=== PATIENT | male | born 2005 | race Caucasian/White ===

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

== ENCOUNTER 2024-04-17 03:03 | Emergency (ER) | payer OTHER, SELFPAY ==
--- NOTE | ~2024-04-17 | CT_ITS ---
CLINICAL HISTORY: New onset headache - pt states pain for 1 month, went away for 2 days,back CT head without contrast Comparison: None Findings: There is no acute intracranial hemorrhage. Ventricles are of normal size and shape. No mass effect or midline shift is present. The price-white matter differentiation appears normal. There is fluid and mucosal thickening in the paranasal sinuses greatest within the left frontal sinus and bilateral sphenoid sinuses. Inferior portions of the maxillary sinuses are not in the field of view. The mastoids are clear. Orbits are unremarkable. No fractures are identified. IMPRESSION: 1. No intracranial abnormality. 2. Fluid and mucosal thickening in the paranasal sinuses suggestive of sinusitis. This document has been electronically signed by: Nestor Ortega MD on 04/17/2024 04:13:43
[2024-04-17 03:10] VITALS: BP 172/85; PULSE 131; RESP 18; TEMP 36.6; O2SAT 100; BMI 18.1
[2024-04-17 03:24] VITALS: BP 144/81; PULSE 117; RESP 18; TEMP 36.7; O2SAT 99
--- NOTE | 2024-04-17 03:24 | PC.NURSE ---
pt brought back to ED room 14. MD Miranda and primary RN Jesica made aware of symptoms
--- NOTE | 2024-04-17 03:28 | ED.NEUROSD ---
HPI - Neuro Symptoms/Deficit General Chief Complaint: Neuro Symptoms/Deficit Stated Complaint: headaches/left side numb Time Seen by Provider: 04/17/24 03:28 Source: patient Mode of arrival: ambulatory Limitations: no limitations History of Present Illness ED Provider: HPI Narrative: Patient's history of anxiety in the past been having headache since 03/29 have almost every day till 2 days ago localized to the left side today patient did not have any headache at 02:00 while sitting on the computer started noticing vague feeling of the left side without any headache feel that his left side is now after that patient has became panic at this time patient does have subjective numbness but no objective findings no focal deficit no headache as such per patient Related Data Previous Rx's ?Medication ?Instructions ?Recorded [id number]-[id number] 1 tab PO Q6H PRN haeadace #20 tabs 04/17/24 50 mg-325 mg-40 mg tablet Allergies Allergy/AdvReac Type Severity Reaction Status Date / Time No Known Allergies Allergy Verified 04/17/24 03:12 [No Known Allergies*] Review of Systems Review of Systems: Yes all other systems are reviewed and are negative [facility] Past Medical History Medical History ADD (attention deficit disorder) Social History Social History Smoked in Last 30 Days: No Substance Use Type: Marijuana Advance Directives: No Advance Directives Information Provided: Yes Do you have a plan to hurt others: No Plan Physical Exam Vital Signs: Vital Signs: Last Vital Signs Temp 98.1 F 04/17/24 03:24 Pulse 117 H 04/17/24 03:24 Resp 18 04/17/24 03:24 BP 144/81 H 04/17/24 03:24 Pulse Ox 99 04/17/24 03:24 O2 Del Method Room Air 04/17/24 03:24 BMI result Body Mass Index 18.1 Appearance: Alert. Oriented X3. No acute distress. Eyes: PERRLA, No Nystagmus ENT: Pharynx normal. Oral Mucosa moist Neck: Normal inspection. Neck supple. Temporal artery normal nontender CVS: Normal heart rate and rhythm. Pulses normal. Respiratory: No respiratory distress. Equal air entry bilateral, no wheezing/rales/rhonchi Abdomen: Soft and nontender. Bowel sounds are present, no mass palpable, no CVA tenderness Skin: Skin warm and dry. Normal skin color. Normal skin turgor. Extremities: No lower extremity edema. No calf tenderness Neuro: Oriented X 3. No motor deficit. No sensory deficit.No cerebellar signs , cranial nerves II-XII intact deep tendon reflexes equal Medical Decision Making Medical Decision Making MDM Narrative: Patient with migraine equivalent syndrome with numbness feeling of the left side with headaches CT scan of the head is negative will discharge patient on Fioricet advised to follow with PCP Differential Diagnosis Differential Diagnoses: The differential diagnosis associated with the presentation includes CVA/brain tumor/migraine Independent Interpretation I performed an independent interpretation of an: CT Scan Radiology Impression Discussion of test interpretation with radiology: I have reviewed the radiologist's reading. Radiologist Impression: NAD Discharge Plan Discharge Clinical Impression: Migraine equivalent syndrome Patient Disposition: Home, Self-Care Instructions: Migraine Headache (ED) Additional Instructions: Your symptoms likely from migraine headache Take medication as prescribed and follow with PCP Prescriptions: New [id number]-uwhzqzizhvogg-gpwt 50-325-40 mg tablet 1 tab PO Q6H PRN (Reason: haeadace) Qty: 20 0RF Print Language: Martiniquais
--- NOTE | 2024-04-17 03:32 | PC.NURSE ---
no facial droop, tongue midline, pupils equal reacting ,no visual loss, strength 5/5 in all limbs, pt reports numbness to left face, upper and lower limb
--- OUTSIDE RECORDS SUMMARY | 2024-04-17 04:00 | XMS_ITS | Encounter Summary ---
Author Organization [facility] Address [address] [place] [phone] Phone Care Team Providers Care Staff Interpreter Name Role Phone Unavailable Primary Care Provider Unavailabl e Encounter Details Date Type Department Care Team (Late st Contact Info) Description 10/02/2016 Conversion Encounter [facility] - [address] [phone] Social History Tobacco Use Types Packs/Day Years Used Date Smoking Tobacco: Never Assessed Sex and Gender Information Value Date Recorded Sex Assigned at Not on file Legal Sex Male 4:15 PM EDT Gender Identity Not on file Sexual Orientation Not on file documented as of this encounter Plan of Treatment Not on file documented as of this encounter Visit Diagnoses Not on filedocumented in this encounter
--- OUTSIDE RECORDS SUMMARY | 2024-04-17 04:00 | XMS_ITS | Clinical Summary ---
Author Organization [address] Address [address] [place], [place] Phone Care Team Providers Care Key Operator Name Role Phone Ashok Gray MD Primary Care Provider [phone] Allergies Active Allergy Reactions Criticality Noted Date Comments House Dust 12/23/2013 Triggers his asthma, wheezing Mold 12/23/2013 Eclectic Oil-Parsley Seed Oil 04/25/2022 Eclectic seeds Medications albuterol HFA (PROAIR HFA ; PROVENTIL HFA ; VENTOLIN HFA) 90 mcg/actuation inhaler Inhale 2 Puffs into the lungs every 4 hours as needed for Cough or Wheezing. 03/13/2022 Active dextroamphetami ne/amphetamine (ADDERALL XR ORAL) Take 2.5 mg by mouth. Active cetirizine (ZyrTEC) 10 mg tablet TAKE 1 TABLET BY MOUTH EVERY DAY 06/02/2022 Active fluticasone propionate (FLONASE) 50 mcg/actuation nasal spray 2 sprays each nostril daily for one month 03/26/2022 Active inhalational spacing device (Aerochamber MV) inhaler Inhale 1 Device into the lungs as needed (wheezing). 11/19/2021 Active Active Problems Problem Noted Date Diagnosed Date Abnormal urinalysis 03/25/2022 Overview (02/11/2024): 03/2022: urine pH elevated. Will repeat and obtain a CMP COVID-19 12/31/2020 Overview (02/11/2024): 12/2020 Testicular pain 07/12/2020 Overview (02/11/2024): 06-17-20 seen in ER [facility] for L>R testicular pain r/o torsion/no trauma/u/s scrotum and pelvis NEG L testicle is larger than R ,of unknown clinical significance.Both testicles demonstrate NL arterial and venous waveforms. Mild echogenic debris within the bladder.correlation with urinary analysis recommended f/u urology appt Last Assessment & Plan: 06-17-20 seen in ER [facility] for L>R testicular pain r/o torsion/no trauma/u/s scrotum and pelvis NEG L testicle is larger than R ,of unknown clinical significance.Both testicles demonstrate NL arterial and venous waveforms. Mild echogenic debris within the bladder.correlation with urinary analysis recommended f/u urology appt Adjustment disorder with anxiety 09/15/2014 Overview (02/11/2024): 9--20 no counseling ,no meds Last Assessment & Plan: no counseling ,no meds Asthma 12/23/2013 Overview (02/11/2024): Triggers: URI, leaves/mold, summer with rain/pollen, dust; ACT 23- has not gone to nurse this year for alb and maybe used once at home 9-20 prn proair Last Assessment & Plan: prn proair Allergy to cats 03/22/2012 Overview (02/11/2024): 9-20 no cats Last Assessment & Plan: no cats ADHD (attention deficit hype ractivity disorder), combined type 01/30/2012 Overview (02/11/2024): Mom feels he has calmed down significantly- did well last year in school Mom stopped herbal treatment- less stress at home and GM now lives in and helps 9--20 no counseling ,no meds Last Assessment & Plan: no counseling ,started Adderall 5mg timed release meds for school prescribe Nirav in [place] Medical History Medical History Date Comments ADHD (attention deficit hype ractivity disorder), combined type 01-30-12 DX:ADHD (attention deficit hyperactivity disorder), combined type RAD (reactive airway disease) 03-21-12 DX :RAD (reactive airway disease); COMMENT: QUESTION OF- no wheeze noted Family circumstance 11/02/2013 DX:Family ci rcumstance; COMMENT: DCF inquiry 10-30 Asthma 12/23/2013 DX:Asthma Fracture of toe of right foot 10-09-15 DX :Fracture of toe of right foot; COMMENT: Salter II non displaced base 2nd toe-10-30-15 NEOS- supportive shoe no F/U Vomiting 08/04/2017 DX:Vomiting; COM MENT: 07/15/17 - mother demanded to be seen at office, plan: symptom calender, H.pylori test, zantac bid x2wks then wean, positional reflux precautions, probiotics and dietary recs, consider endoscopy if vomiting persists. F/u 4-6wks 08/03 -Insurance issues, [facility] GI referral placed 08/03 - [facility] Ped GI visit: Hannah SYLVESTER , begin Cyproheptadine 4mg at bedtime and D* Adjustment disorder with anxiety 09/15/2014 DX:Adjustment disorder with anxiety Allergy to cats 03/22/2012 DX:Allergy to ca ts Parent refuses immunizations 10/28/2011 DX: Parent refuses immunizations Testicular pain 07/12/2020 DX:Testicular pa in; COMMENT: 06-17-20 seen in ER [facility] Family History Medical History Relation Name Comments Other: diverticuitis Mother's side 1 GP's Other: Other Other 1 no asthma, DM, allergies Relation Name Status Comments Mother's side 1 Mother's side 2 Other 1 Other 2 Social History Tobacco Use Types Packs/Day Years Used Date Smoking Tobacco: Never Smokeless Tobacco: Never Alcohol Use Standard Drinks/Week Comments Not Asked 0 (1 standard drink = 0.6 oz pur e alcohol) Sex and Gender Information Value Date Recorded Sex Assigned at Not on file Legal Sex Male 9:13 PM EST Gender Identity Not on file Sexual Orientation Not on file Obstetrics History Growth Chart Information Age Height Weight [id number] th Percentile BMI Percentile Head Circum Head Circum Percentile Date 16 years 178.5 cm (5' 10.28 ) 58.5 kg (129 lb) 6.12%* 2022 16 years 56.9 kg (125 lb 6.4 oz) 2022 16 years 57.8 kg (127 lb 8 oz) 2022 16 years 56.2 kg (123 lb 12.8 oz) 2022 16 years 178 cm (5' 10.08 ) 57 kg (125 lb 9.6 oz) 5.85%* 2022 15 years 53.8 kg (118 lb 9.6 oz) 2021 15 years 52.9 kg (116 lb 9.6 oz) 2020 14 years 174.1 cm (5' 8.54 ) 51.9 kg (114 lb 6.4 oz) 5.29%* 2020 14 years 49.9 kg (110 lb) 2020 14 years 49.1 kg (108 lb 3 oz) 2019 13 years 170.6 cm (5' 7.17 ) 47.3 kg (104 lb 6 oz) 3.60%* 2019 13 years 165.3 cm (5' 5.08 ) 42.8 kg (94 lb 6.4 oz) 2.39%* 2019 12 years 161 cm (5' 3.39 ) 40 kg (88 lb 3.2 oz) 2.14%* 2018 12 years 157.5 cm (5' 2 ) 39.5 kg (87 lb) 5.89%* 2018 12 years 156.4 cm (5' 1.58 ) 39.8 kg (87 lb 12.8 oz) 11.07%* 2018 11 years 149.5 cm (4' 10.86 ) 38.9 kg (85 lb 12.8 oz) 35.96%* 2017 11 years 150.5 cm (4' 11.25 ) 37.9 kg (83 lb 9.6 oz) 24.45%* 2017 11 years 149.5 cm (4' 10.86 ) 37.6 kg (82 lb 12.8 oz) 25.68%* 2017 11 years 149.9 cm (4' 11 ) 36.5 kg (80 lb 6.4 oz) 17.29%* 2017 10 years 146.7 cm (4' 9.75 ) 33.7 kg (74 lb 6.4 oz) 13.26%* 2016 10 years 144.2 cm (4' 8.77 ) 33.2 kg (73 lb 4 oz) 20.68%* 2016 * [facility] (Boys, 2-20 Years) Last Filed Vital Signs Vital Sign Reading Time Taken Comments Blood Pressure 118/68 03/13/2022 2:05 PM EST Sitting L Arm Pulse 92 10/28/2022 10:03 AM EDT Temperature - - Respiratory Rate - - Oxygen Saturation - - Inhaled Oxygen Concentration - - Weight 58.5 kg (129 lb) 10/28/2022 10:0 3 AM EDT Height 178.5 cm (5' 10.28 ) 10/28/2022 10:03 AM EDT Body Mass Index 18.36 10/28/2022 10:03 AM EDT Body Mass Index Percentile 6.12% 10/28 10:03 AM EDT Growth Chart: [facility] (Boys, 2-2 0 Years) Plan of Treatment Upcoming Encounters Date Type Department Care Team (Late st Contact Info) Description 01/13/2025 8:00 AM EST Office Visit Adult Medicine [facility] [address] [place] [id number] Ashok Gray MD [address] [place] [address] Health Maintenance Due Date Last Done Comments Varicella Vaccines (1 of 2 - 13+ 2-dose series) 2017 HPV Vaccines (1 - Male 3-dose series) 11/22/2019 Meningococcal B Vacine (1 of 2 - Standard) 2020 Depression Screening 01/25/2022 HIV Screening 01/25/2022 Hepatitis C Screening 01/25/2022 Social Influencers of Health Screening 01/25/2022 Annual Well Child Visit (3-21 years old) 03/13/2023 03/13/2022, 11/01/2020, 11/01/2019, Additional history exists COVID-19 Vaccine ( - season) 2023 Influenza Vaccine (#1) 2023 DTaP,Tdap,and Td Vaccines (1 - Tdap) 11/22/2023 Hepatitis B Vaccines (1 of 3 - 19+ 3-dose series) 11/22/2023 Pneumococcal Vaccine: Pediatrics (0 to 5 Years) and At-Risk Patients (6 to 64 Years) (1 of 2 - PCV) 11/22/2023 HIB Vaccines Aged Out No longer eligi ble based on patient's age to complete this topic Hepatitis A Vaccines Aged Out No long er eligible based on patient's age to complete this topic IPV Vaccines Aged Out No longer eligi ble based on patient's age to complete this topic MMR Vaccines Aged Out No longer eligi ble based on patient's age to complete this topic Meningococcal ACWY Vaccine Aged Out N o longer eligible based on patient's age to complete this topic RSV Immunization Patients Under 20 months Aged Out No longer eligible based on patient's age to complete this [place] [id number] [facility] Care Teams Key Operator Relationship Specialty Start Date End Date Ashok Gray MD [address] [place] [id number] PCP - General 12/17/23
[2024-04-17 04:34] VITALS: BP 134/80; PULSE 100; RESP 18; TEMP 36.7; O2SAT 99
== END 2024-04-17 04:35 | disposition home or self-care (01) ==
PROVIDERS: Emergency Provider Internal Medicine; PCP Internal Medicine
DX: G43.109 Migraine with aura, not intractable, without status migrainosus (principal); R20.0 Anesthesia of skin
CPT/HCPCS: 70450; 99284

== ENCOUNTER → 2024-04-17 03:35 | Outpatient (BNV) | payer OTHER, SELFPAY | PROVIDERS: Emergency Provider Internal Medicine; PCP Internal Medicine; Visit Provider Radiology Diagnostic Radiology | DX: R51.9 Headache, unspecified (principal) | CPT/HCPCS: 70450 ==